=== PATIENT | female | born 1990 ===

== ENCOUNTER 2017-06-16 17:57 | Observation (INO) ==
[2017-06-16] MEDS ORDERED: LACTATED RINGERS 1,000 ML IV ONE (18:26)
[2017-06-16 18:47] LABS: Basophils % 0.1 % (0.0-0.8); Eosinophils # 0.1 10*3/uL (0.0-0.87); Eosinophils % 0.8 % (0.00-10.9); Hematocrit 30.6 VOL% (35.7-47.0); Hemoglobin 10.1 GM/DL (12.0-16.0); Immature Granulocytes % 0.6 %; Immature Granulocytes Absolute 0.05 #; Lymphocytes # 1.7 10*3/uL (1.4-4.0); Lymphocytes % 20.2 % (21.3-54.2); Mean Corpuscular Hemoglobin 29 PG (27-34); Mean Corpuscular Volume 87.7 FL (87-102); Mean Platelet Volume 9.9 FL (9.6-12.0); Monocytes # 0.7 10*3/uL (0.11-0.8); Monocytes % 8.5 % (1.7-12.7); Neutrophils # 5.9 10*3/uL (1.4-7.4); Neutrophils % 69.8 % (38.7-73.9); Platelet Count 300 T/CUMM (130-400); Red Blood Count 3.49 MC/CUMM (3.8-5.5); Red Cell Distribution Width 12.1 % (9.3-17.3); White Blood Count 8.5 T/CUMM (4-12)
[2017-06-16 19:08] LABS: Alanine Aminotransferase 20 U/L (13-56); Albumin 2.5 G/DL (3.4-5.0); Alkaline Phosphatase 84 U/L (45-117); Aspartate Amino Transferase 16 U/L (0-37); Bilirubin,Total < 0.39 MG/DL (0.2-1.0); Blood Urea Nitrogen 8 MG/DL (7-18); Calcium 8.2 MG/DL (8.5-10.1); Glucose 110 MG/DL (74-106); Osmolality,Calculated 275.5 MOS/KG (273-304); Potassium 3.6 MMOL/L (3.5-5.1); Sodium 139 MMOL/L (136-145); Total Protein 6.2 G/DL (6.4-8.3)
[2017-06-16 19:11] LABS: Apearance,Urine Clear (Clear); Glucose,Urine (UA) Negative (Negative); Ketones,Urine Negative (Negative); Nitrite,Urine Negative (Negative); Protein,Urine Negative; Urine Color Yellow (Yellow); Urine Specific Gravity 1.005 (1.001-1.035)
[2017-06-16 19:12] LABS: Bilirubin,Urine Negative (Negative); Blood, Urine Negative (Negative); Urine Urobilinogen 0.2 EU/DL (0.2-1.0)
[2017-06-16 19:14] LABS: Bacteria,Urine Moderate /HPF (Few); RBC,Urine 0-2 /HPF (0-4); Squamous Epithelial Cell,Urine Few /HPF (0-10)
[2017-06-16] MEDS: ACETAMINOPHEN 325 MG TABLET PO PRN (20:35)
[2017-06-16] MEDS: LACTATED RINGERS 1,000 ML IV SCH (20:41)
[2017-06-16] MEDS ORDERED: SODIUM CHLORIDE 0.9% 250 ML IV ONE (20:53)
[2017-06-16] MEDS ORDERED: AMPICILLIN INJ 2,000 MG in SODIUM CHLORIDE 0.9% 100 ML IV SCH (21:00)
[2017-06-16] MEDS: AMPICILLIN IV SCH (21:01)
[2017-06-17] MEDS: LACTATED RINGERS 1,000 ML IV SCH ×2 (03:33→11:00)
[2017-06-17] MEDS: AMPICILLIN IV SCH ×2 (04:20→10:24)
[2017-06-17] MEDS: ACETAMINOPHEN 325 MG TABLET PO PRN ×2 (14:59→19:39)
[2017-06-17] MEDS: AMPICILLIN INJ 2,000 MG in SODIUM CHLORIDE 0.9% 100 ML IV SCH ×2 (17:41→23:09)
[2017-06-18] MEDS: ACETAMINOPHEN 325 MG TABLET PO PRN (00:11)
[2017-06-18] MEDS: AMPICILLIN INJ 2,000 MG in SODIUM CHLORIDE 0.9% 100 ML IV SCH ×3 (04:34→17:30)
[2017-06-18] MEDS ORDERED: MULTIVITAMIN (PRENATAL) TABLET PO SCH (09:00)
[2017-06-18 15:35] VITALS: BP 131/78
== END 2017-06-18 19:19 | disposition home or self-care (01) ==
LOC: N.LD 17:57 → N.LDOUT 17:57 → N.LD 18:01 → N.SDSINP 20:01 → N.OB 20:01 → UNDODEPREF 06-19 11:21
PROVIDERS: ADMIT Obstetrics & Gynecology; ATTEND Obstetrics & Gynecology